=== PATIENT | female | born 1965 | race Caucasian/White ===

== ENCOUNTER 2016-09-15 14:34 | Outpatient (CLI) | payer MEDICAID | END 2016-09-15 14:35 | disposition home or self-care (01) | DX: F32.9 Major depressive disorder, single episode, unspecified (principal); R53.83 Other fatigue; Z13.6 Encounter for screening for cardiovascular disorders; M79.661 Pain in right lower leg; Z78.9 Other specified health status ==

== ENCOUNTER 2016-09-16 13:16 | Outpatient (CLI) | payer MEDICAID | END 2016-09-16 13:17 | disposition home or self-care (01) | DX: M79.661 Pain in right lower leg (principal) ==

== ENCOUNTER 2017-12-08 08:00 | Outpatient (CLI) | payer MEDICAID ==
[2017-12-08 19:23] LABS: BILIRUBIN,URINE NEGATIVE (NEGATIVE); GLUCOSE, URINE (UA) NEGATIVE (NEGATIVE); KETONES,URINE (UA) NEGATIVE (NEGATIVE); LEUKOCYTE ESTERASE, URINE NEGATIVE (NEGATIVE); NITRITE,URINE NEGATIVE (NEGATIVE); OCCULT BLOOD,URINE NEGATIVE (NEGATIVE); PROTEIN,URINE NEGATIVE (NEGATIVE); UROBILINOGEN,URINE 0.2 (NORMAL) E.U./dL (NORMAL)
[2017-12-08 19:25] LABS: CLARITY,URINE CLEAR (CLEAR)
[2017-12-08 19:41] LABS: BACTERIA,URINE Many /HPF (None Seen); MUCUS,URINE Few Strands; RBC,URINE None Seen /HPF (0-5); SQUAMOUS EPITHELIAL CELL,UR MANY Squamous (<= Few)
[2017-12-08 19:42] LABS: CRYSTALS,URINE 26-50 Ca Oxalate /LPF
== END 2017-12-08 08:01 ==
LOC: LAB.R 08:00
PROVIDERS: ATTEND Nurse Practitioner Family
DX: N39.0 Urinary tract infection, site not specified (principal)
CPT/HCPCS: 81001; 87086

== ENCOUNTER 2018-12-26 22:46 | Emergency (ER) | payer MEDICAID ==
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
[2018-12-26 22:56] VITALS: BP 122/78
[2018-12-26] MEDS ORDERED: LIDOCAINE 1% 2 ML VIAL SUBQ STA (23:07)
[2018-12-26] MEDS ORDERED: cephALEXin 250 MG CAPSULE PO STA (23:34)
[2018-12-26] MEDS ORDERED: SULFAMETH/TRIMETH DS 800/160 MG TABLET PO STA (23:34)
== END 2018-12-26 23:57 | disposition home or self-care (01) ==
LOC: ED 22:46
DX: L02.413 Cutaneous abscess of right upper limb (principal)
CPT/HCPCS: 10060; 99283; A9270

== ENCOUNTER 2018-12-29 13:56 | Emergency (ER) | payer MEDICAID ==
[2018-12-29 14:05] VITALS: BP 131/57
--- NOTE | 2018-12-29 14:08 | ED Physician Documentation ---
PD HPI WOUND RECHECK - Stated complaint Stated Complaint: R WRIST WOUND CHECK - Chief complaint Chief Complaint: Wound - Histroy obtained from History obtained from: Patient - History of Present Illness Location: Right Upper Extremity (forearm) Timing - onset: How many days ago (3) Associated symptoms: Redness (has decreased considerably, per patient), Swelling (has decreased quite a bit since prior visit), Drainage (minimal the past day) Recently seen: Emergency Dept (3 days ago, with abscess that had I&D and placed on abx, with report saying culture obtained but no noted order for it and no lab result.) Review of Systems Constitutional: denies: Fever, Chills GI: denies: Nausea, Vomiting, Diarrhea PD PAST MEDICAL HISTORY - Past Medical History Cardiovascular: None Neuro: None Endocrine/Autoimmune: None - Past Surgical History Past Surgical History: Yes Ortho: Other - Present Medications Home Medications: Ambulatory Orders Medication Instructions Recorded Confirmed Cephalexin [Keflex] 500 mg PO Q6H #40 capsule 12/26/18 Sulfamethox/Trimeth 800/160 1 each PO BID #20 tablet 12/26/18 [Bactrim Ds 800/160] - Allergies Allergies/Adverse Reactions: Allergies Allergy/AdvReac Type Severity Reaction Status Date / Time morphine Allergy Unknown Verified 12/26/18 22:56 - Social History Does the pt smoke?: No Smoking Status: Never smoker PD ED PE NORMAL - Vitals Vital signs reviewed: Yes - General General: Alert and oriented X 3, No acute distress, Well developed/nourished - Derm Derm: Normal color, Warm and dry - Extremities Extremities: Other (right forearm with gustavo wrap and dressing. The wick is still in place. It is easily removed. There is dull pink/redness around the wound, without swelling. It appears to be much resolved compared to prior picture of it the patient shows me on her phone. ) - Neuro Neuro: Alert and oriented X 3, No motor deficit, No sensory deficit Results - Vitals Vitals: Vital Signs - 24 hr 12/29/18 14:02 Temperature 36.1 C L Heart Rate 99 Respiratory 18 Rate Blood Pressure 131/57 H O2 Saturation 98 Oxygen O2 Source Room air PD MEDICAL DECISION MAKING - ED course Complexity details: considered differential (much improved. There is no culture on record, so will have her continue both abxs she is on, as it seems to be working okay. ), d/w patient Departure - Departure Disposition: 01 Home, Self Care Clinical Impression: Abscess re-check Condition: Stable Record reviewed to determine appropriate education?: Yes Comments: Warm moist towels to the area or some mild 6-3 times a day. This will help promote drainage. Otherwise keep it covered and a little wrapped. Continue both current antibiotics as they seem to be working. There was not a culture results from the other day so I do not know where it got lost in the chain. Therefore we will have you use both antibiotics still since they do seem to be improving it. Recheck if not continually improving over the next several days. The open wound will heal itself and over the next week or 2. Return if signs of recurring or worsening infection again. Discharge Date/Time: 12/29/18 14:38
== END 2018-12-29 14:38 | disposition home or self-care (01) ==
LOC: ED 13:56
DX: Z48.03 Encounter for change or removal of drains (principal); L02.413 Cutaneous abscess of right upper limb
CPT/HCPCS: 99282

== ENCOUNTER 2019-10-26 17:15 | Outpatient (CLI) | payer MEDICAID | END 2019-10-26 17:16 | disposition home or self-care (01) | LOC: COV 17:15 | PROVIDERS: ATTEND Family Medicine | DX: R05 Cough (principal) | CPT/HCPCS: 81599 ==

== ENCOUNTER 2023-08-04 13:52 | Outpatient (CLI) | payer MEDICAID, OTHER | END 2023-08-04 23:59 | disposition short-term general hospital (02) | LOC: EMS 13:52 | DX: S01.81XA Laceration without foreign body of other part of head, initial encounter (principal); M25.511 Pain in right shoulder; M79.632 Pain in left forearm; V48.5XXA Car driver injured in noncollision transport accident in traffic accident, initial encounter; Y92.414 Local residential or business street as the place of occurrence of the external cause | CPT/HCPCS: A0425; A0429 ==